=== PATIENT | female | born 1980 | race Caucasian/White ===

== ENCOUNTER 2019-08-01 16:47 | Emergency (ER) | payer BC, OTHER ==
[2019-08-01 16:56] VITALS: BP 162/85; PULSE 84
[2019-08-01] MEDS ORDERED: Famotidine 20 MG Tab PO ONE (17:39)
[2019-08-01] MEDS ORDERED: predniSONE 20 MG Tab PO ONE (17:39)
[2019-08-01] MEDS ORDERED: EPINEPHrine 1 MG/ML SDV IM ONE ×2 (17:39→18:28)
--- NOTE | 2019-08-01 19:15 | EDM.PDOC ---
ED HPI GENERAL MEDICAL PROBLEM - General Chief Complaint: Allergic Reaction Stated Complaint: reaction to medicine Time Seen by Provider: 08/01/19 17:10 Source of Information: Reports: Patient, RN Notes Reviewed - History of Present Illness INITIAL COMMENTS - FREE TEXT/NARRATIVE: 38-year-old female presents with sensation of fullness in the back of her throat , sensation of swelling back of her throat. He can with this sensation early this morning and it has not gotten better throughout the day. She was started on prednisone for sinus congestion and ear pressure about a week ago. Sounds like that was a Solu-Medrol Dosepak and she is on the tail end of that at this time. He feels like there might be some mild rash back of her neck. She has not been aware of other rash or hives today. Her recent medications. She does have history of prior allergic reaction to codeine and also to Levaquin. 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: Musculoskeletal History: Reports: None Neurological History: Reports: None Psychiatric History: Reports: None Endocrine/Metabolic History: Reports: Obesity/BMI 30+ Hematologic History: Reports: None Immunologic History: Reports: None Oncologic (Cancer) History: Reports: None - Infectious Disease History Infectious Disease History: Reports: None - Past Surgical History Female Surgical History: Reports: Section Other Female Surgeries/Procedures: Pt states that they "lost a Mirena and had to find it surgically." Dermatological Surgical History: Reports: Other (See Below) Social & Family History - Tobacco Use Smoking Status *Q: Never Smoker - Caffeine Use Caffeine Use: Reports: Coffee, Soda - Recreational Drug Use Recreational Drug Use: No ED ROS ALLERGIC REACTION - Review of Systems Review Of Systems: See Below Constitutional: Denies: Fever, Chills, Diaphoresis HEENT: Reports: Throat Pain (Mainly due to the sensation of swelling back of her throat), Throat Swelling Respiratory: Denies: Shortness of Breath, Pleuritic Chest Pain Cardiovascular: Denies: Chest Pain GI/Abdominal: Denies: Abdominal Pain, Nausea, Vomiting Musculoskeletal: Reports: No Symptoms Skin: Reports: Rash Neurological: Reports: No Symptoms ED EXAM GENERAL NO PERIP PULSE - Physical Exam Exam: See Below General Appearance: Alert, Mild Distress Eye Exam: Bilateral Eye: PERRL Ears: Normal External Exam Nose: Normal Inspection Throat/Mouth: Other (Uvula is very slightly swollen, posterior throat is not otherwise swollen) Head: No: Facial Swelling Neck: Supple, Full Range of Motion. No: Lymphadenopathy (L), Lymphadenopathy (R ) Respiratory/Chest: No Respiratory Distress, Lungs Clear, Normal Breath Sounds. No: Rhonchi, Wheezing Cardiovascular: Regular Rate, Rhythm GI/Abdominal: Soft Extremities: Normal Inspection, Normal Range of Motion Neurological: Alert, Oriented, No Motor/Sensory Deficits Skin Exam: Warm, Erythema (Mild diffuse erythema of her face), Rash (There are hives of the posterior neck and also mild hives over the remainder of her back with a few scattered hives of her abdomen and upper arms.) Course - Vital Signs Last Recorded V/S: Last Vital Signs Temp 98.8 F 08/01/19 16:52 Pulse 84 08/01/19 16:52 Resp 16 08/01/19 16:52 BP 162/85 H 08/01/19 16:52 Pulse Ox 100 08/01/19 16:52 - Orders/Labs/Meds Meds: Medications Discontinued Medications Generic Name Dose Route Start Last Admin Trade Name Hugo PRN Reason Stop Dose Admin Epinephrine HCl 0.3 mg 08/01/19 17:39 08/01/19 17:49 Adrenalin IM 08/01/19 17:40 0.3 mg ONETIME ONE Administration Epinephrine HCl 0.3 mg 08/01/19 18:28 08/01/19 18:32 Adrenalin IM 08/01/19 18:29 0.3 mg ONETIME ONE Administration Famotidine 20 mg 08/01/19 17:39 08/01/19 17:49 Pepcid PO 08/01/19 17:40 20 mg ONETIME ONE Administration Prednisone 40 mg 08/01/19 17:39 08/01/19 17:49 Prednisone PO 01/29/20 17:40 40 mg ONETIME ONE Administration - Re-Assessments/Exams Free Text/Narrative Re-Assessment/Exam: 08/01/19 20:52 Patient was given prednisone 40 mg by mouth. She has taken a lot of Benadryl at home today. She was given epi 0.3 male 10 1000 IM and then a follow-up dose of about 45 minutes later. She has had may be very slight clearing of the rash and hives. She has not been complaining of itchiness while here in the ED. No breathing difficulty. She has been using a lot of topical vitamin E type.X and also does take a multivitamin supplement. No other recent unusual ingestion or exposure that she is aware of. Discharge instructions as documented. Departure - Departure Time of Disposition: 19:12 Disposition: Home, Self-Care 01 Condition: Fair Clinical Impression: Allergic urticaria - Discharge Information Prescriptions: predniSONE [Prednisone] 50 mg PO DAILY #6 tablet Instructions: Hives, [id number] Referrals: Bhumi Higuera PA-C [Primary Care Provider] - Forms: ED Department Discharge Additional Instructions: Stop all supplements, topical and oral for now. Simple bland diet as tolerated. Prednisone 50 mg every morning for the next 6 days, prescription has been sent electronically to [facility] [place]. Claritin 10 mg daily, see your medical provider Tuesday, call for appointment, return to ED as needed. Sepsis Event Note - Evaluation Sepsis Screening Result: No Definite Risk - Focused Exam Vital Signs: Vital Signs Temp Pulse Resp BP Pulse Ox 08/01/19 16:52 98.8 F 84 16 162/85 H 100 Date Exam was Performed: 08/01/19 Time Exam was Performed: 20:49
== END 2019-08-01 19:20 | disposition home or self-care (01) ==
LOC: JD.ED 16:47
DX: L50.0 Allergic urticaria (principal); T45.2X5A Adverse effect of vitamins, initial encounter; E66.9 Obesity, unspecified; Z68.39 Body mass index [BMI] 39.0-39.9, adult; Z88.5 Allergy status to narcotic agent; Z88.8 Allergy status to other drugs, medicaments and biological substances
CPT/HCPCS: 96372; 99283; A9270; J0171